=== PATIENT | female | born 1985 | race Caucasian/White ===

== ENCOUNTER 2018-01-20 10:09 | Observation (INO) | payer MEDICAID ==
[~2018-01-20] VITALS: Ht 157.5 cm; Wt 74.8 kg
[~2018-01-20 10:09] MED LIST: CEPH500C2 PO
[2018-01-20] MEDS ORDERED: PNV1TABL50 PO (11:17)
== END 2018-01-20 12:15 | disposition home or self-care (01) ==
LOC: L&D 10:09
PROVIDERS: ADMIT Obstetrics & Gynecology; ATTEND Obstetrics & Gynecology
DX: O26.893 Other specified pregnancy related conditions, third trimester (principal); R10.30 Lower abdominal pain, unspecified; Z3A.29 29 weeks gestation of pregnancy
CPT/HCPCS: 99281; G0378